=== PATIENT | male | born 1975 | race Caucasian/White ===

== ENCOUNTER 2018-06-06 07:18 | Emergency (ER) | payer OTHER, BC ==
[2018-06-06] MEDS ORDERED: SODIUM CHLORIDE 0.9% 500 ML IV ONE (07:35)
--- NOTE | 2018-06-06 07:38 | Emergency Department Record ---
History of Present Illness - General Chief Complaint: Abdominal Pain Stated Complaint: RIGHT SIDED ABD PAIN Time Seen by Provider: 06/06/18 07:31 Source: Patient Mode of Arrival: Ambulatory Limitations: No limitations - History of Present Illness Initial Comments: The patient is here due to a 24 hour hx of R flank pain. The pain is sharp and stabbing and nonradiating. It is worse with palpation and lying flat and is not related to food. The patient denies any nausea, vomiting, diarrhea, or fever with it. He does state he had similar pain prior to getting his appendix removed. MD Complaint: Abdominal pain Onset/Timin -: Days(s) Location: R Flank, RUQ Severity scale (1-10): 8 Quality: Sharp, Stabbing Improves With: Other Worsens With: Movement, Rest - Related Data Previous Rx's Medication Instructions Recorded Hydrocodone/Acetaminophen [[place] 1 - 2 each PO QID #12 tablet 06/06/18 5-325 Tablet] Ibuprofen [Motrin] 800 mg PO TID PRN #20 tab 06/06/18 Allergies Allergy/AdvReac Type Severity Reaction Status Date / Time No Known Drug Allergies Allergy Verified 06/06/18 07:31 Travel Screening - Travel/Exposure Within Last 30 Days Have you traveled within the last 30 days?: No - Travel/Exposure Within Last Year Have you traveled outside the [place] in the last year?: No - Additonal Travel Details Have you been exposed to anyone with a communicable illness?: No - Travel Symptoms Symptom Screening: Stomach Pain Review of Systems Constitutional: Denies: Chills, Fever Eyes: Denies: Eye discharge ENT: Denies: Congestion Respiratory: Denies: Cough, Dyspnea Past Medical History - SOCIAL HISTORY Smoking Status: Current every day smoker Alcohol Use: Rare Drug Use: None - RESPIRATORY Hx Respiratory Disorders: No - CARDIOVASCULAR Hx Cardio Disorders: No - NEURO Hx Neuro Disorders: No - GI Hx GI Disorders: No - Hx Genitourinary Disorders: No - ENDOCRINE Hx Endocrine Disorders: No - MUSCULOSKELETAL Hx Musculoskeletal Disorders: No - PSYCH Hx Psych Problems: No - HEMATOLOGY/ONCOLOGY Hx Hematology/Oncology Disorders: No Family Medical History Any Significant Family History?: No Physical Exam - General General Appearance: Alert, Oriented x3, Cooperative, No acute distress - Head Head exam: Atraumatic, Normocephalic, Normal inspection - Eye Eye exam: Normal appearance, PERRL - Neck Neck exam: Normal inspection, Full ROM. negative: Tenderness - Respiratory Respiratory exam: Normal lung sounds bilaterally. negative: Respiratory distress - Cardiovascular Cardiovascular Exam: Regular rate, Normal rhythm, Normal heart sounds - GI/Abdominal GI/Abdominal exam: Soft, Tenderness (There is significant RUQ and R flank tenderness.). negative: Distended, Guarding, Rigid - Extremities Extremities exam: Normal inspection, Full ROM, Normal capillary refill. negative: Tenderness Course Vital Signs 06/06/18 07:20 Temperature 97.6 F Pulse Rate 69 Respiratory 20 Rate Blood Pressure 159/96 Pulse Ox 99 - Reevaluation(s) Reevaluation #1: The patient is doing better at this time. His pain is mildly improved. We are waiting on the CT report presently. The patient does not require any pain medicines at this time. 06/06/18 08:46 Reevaluation #2: The patient is doing very well at this time. He is resting comfortably but is still having pain. I did discuss the CT results that did demonstrate Epiploic Appendigitis. He is to take 2 days off work and see his family doctor in 2 days if not better. 06/06/18 09:41 Medical Decision Making - Data Complexity MDM Data: Labs Ordered and/or Reviewed, X-Ray Ordered and/or Reviewed - Lab Data Result diagrams: 06/06/18 07:48 06/06/18 07:48 - Radiology Data Radiology results: Report reviewed (Abd CT: R ascending colon Epiploic Appendigitis. ) Disposition Disposition: Discharge Clinical Impression: Epiploic appendagitis Disposition: Home, Self-Care Condition: (2) Stable Instructions: Acute Abdominal Pain (ED) Additional Instructions: Please take the Motrin and [place] as directed. Please see your family doctor in 2 days if not better and return to the ER for any worsening symptoms. Prescriptions: Hydrocodone/Acetaminophen [[place] 5-325 Tablet] 1 - 2 each PO QID #12 tablet Ibuprofen [Motrin] 800 mg PO TID PRN #20 tab PRN Reason: Pain Forms: Patient Portal Access Time of Disposition: 09:43 Quality - Quality Measures Quality Measures: N/A - Blood Pressure Screening View Details: Yes Does Patient Have Any of the Following: No Blood Pressure Classification: Hypertensive Reading Systolic Measurement: 159 Diastolic Measurement: 96 Screening for High Blood Pressure: < First Hypertensive BP, F/U Documented > [ [id number]] First Hypertensive Follow-up Interventions: Referral to alternative/primary care provider.
[2018-06-06 07:53] LABS: BASO % 0.5 % (0-6); GRAN % 58.1 % (47-80); HEMATOCRIT 45.5 % (42.0-52.0); HEMOGLOBIN 15.2 gm/dl (14.0-18.0); LYMPH % 26.8 % (16-45); MEAN CELL VOLUME 91.5 fl (81-97); MEAN CORPUSCULAR HEMOGLOBIN 30.6 pg (27-33); MEAN CORPUSCULAR HGB CONC 33.4 g/dl (32-36); MEAN PLATELET VOLUME 10.2 fl (7.4-10.4); MONO % 9.6 % (0-9); PLATELET COUNT 358 K/uL (130-400); RED BLOOD COUNT 4.97 M/uL (4.40-5.70); RED CELL DISTRIBUTION WIDTH 13.6 % (11.5-14.5); URINE BILIRUBIN NEGATIVE (NEGATIVE); URINE BLOOD NEGATIVE (NEGATIVE); URINE GLUCOSE (UA) NEGATIVE (NEGATIVE); URINE KETONE NEGATIVE (NEGATIVE); URINE LEUKOCYTE ESTERASE NEGATIVE (NEGATIVE); URINE NITRITE NEGATIVE (NEGATIVE); URINE PROTEIN NEGATIVE (NEGATIVE); URINE UROBILINOGEN 0.2 E.U./dL (0.20 - 1.00); WHITE BLOOD COUNT W/O DIFF 11.5 K/uL (4.2-12.2)
[2018-06-06 07:54] LABS: URINE APPEARANCE CLEAR; URINE COLOR YELLOW
[2018-06-06 08:07] LABS: BLOOD UREA NITROGEN 11 mg/dL (6-20); CREATININE 0.9 mg/dL (0.7-1.2); EST GLOMERULAR FILTRATION RATE > 60 mL/min; TOTAL PROTEIN 7.3 g/dL (6.6-8.7)
[2018-06-06 08:09] LABS: GLUCOSE,RANDOM 109 mg/dL (74-109)
[2018-06-06] MEDS ORDERED: KETOROLAC 30 MG/ML VIAL IVP ONE (08:11)
[2018-06-06 08:12] LABS: ALBUMIN 4.7 g/dL (4.0-5.0); ALKALINE PHOSPHATASE 57 U/L (40-129); ALT/SGPT 55 U/L (<41); AST/SGOT 19 U/L (10.0-50.0); LIPASE 26 U/L (13-60)
[2018-06-06 08:13] LABS: BILIRUBIN,DIRECT < 0.2 mg/dL (0-0.3)
--- NOTE | 2018-06-08 07:40 | CT SCAN REPORT ---
EXAM: NONCONTRAST CT OF THE ABDOMEN AND PELVIS HISTORY: RIGHT UPPER QUADRANT ABDOMINAL PAIN FOR TWO DAYS. HISTORY OF PRIOR APPENDECTOMY. TECHNIQUE: Noncontrast CT of the abdomen and pelvis was obtained. Comparison: None. FINDINGS: The lung bases are clear. Small hiatal hernia. Hepatic steatosis with fatty sparing near the gallbladder fossa. Unremarkable noncontrast appearance of the gallbladder, adrenal glands and spleen. Ovoid fat density structure along the anterior aspect of the ascending colon ( best seen on sagittal series image 45) with associated fat stranding, suggestive of epiploic appendagitis. The appendix is not seen compatible with provided surgical history, otherwise no focal colonic thickening or inflammatory changes. The stomach and small bowel are nondilated. No free air or free fluid. The abdominal aorta appears nondilated. No hydronephrosis. The urinary bladder is mildly distended, otherwise unremarkable noncontrast appearance. Both inguinal canals appear patulous and fat containing. No definite acute osseous findings. IMPRESSION: 1. FINDINGS SUGGESTIVE OF EPIPLOIC APPENDAGITIS INVOLVING THE ASCENDING COLON. 2. HEPATIC STEATOSIS. JOB NUMBER: [id number] [facility]
== END 2018-06-06 09:57 | disposition home or self-care (01) ==
LOC: ER 07:18
DX: K65.9 Peritonitis, unspecified (principal); R10.11 Right upper quadrant pain; F17.210 Nicotine dependence, cigarettes, uncomplicated
CPT/HCPCS: 99284 ×2; 96374; 83690; 85025; 80076; 80048; 81003; 74176; J1885